=== PATIENT | female | born 1940 | race African-American/Black ===

== ENCOUNTER 2020-10-11 20:40 | Emergency (ER) | payer SELFPAY ==
[~2020-10-11] VITALS: Ht 162.6 cm; Wt 69.0 kg
[2020-10-12 01:54] VITALS: BP 130/57
== END 2020-10-12 01:57 | disposition home or self-care (01) ==
LOC: ER 20:40
DX: F03.90 Unspecified dementia, unspecified severity, without behavioral disturbance, psychotic disturbance, mood disturbance, and anxiety (principal); I51.7 Cardiomegaly
CPT/HCPCS: 93005; 99283